=== PATIENT | male | born 1970 | race Caucasian/White ===

== ENCOUNTER 2019-04-22 21:57 | Emergency (ER) | payer OTHER ==
[2019-04-22 22:26] VITALS: BP 122/82; PULSE 65; TEMP 98.6; BMI 35.6
[2019-04-22] MEDS ORDERED: ACETAMINOPHEN 325 MG TABLET (FP) PO ONE (23:11)
[2019-04-22] MEDS ORDERED: ACETAMINOPHEN 325 MG TABLET (FP) ONE (23:15)
--- NOTE | 2019-04-23 01:11 | PDOC ---
History of Present Illness - General Chief Complaint: Pain, Acute Stated Complaint: PAIN Time Seen by Provider: 04/22/19 22:52 History Source: Patient Exam Limitations: No Limitations Past History - Travel Traveled outside of the country in the last 30 days: No Close contact w/someone who was outside of country & ill: No - Past Medical History Allergies/Adverse Reactions: Allergies Allergy/AdvReac Type Severity Reaction Status Date / Time No Known Allergies Allergy Verified 04/23/19 00:43 Home Medications: Ambulatory Orders Naproxen [Naprosyn -] 500 mg PO BID #14 tablet 12/16/14 Naproxen [Naprosyn -] 500 mg PO BID #14 tablet 04/23/19 Asthma: Yes GI Disorders: Yes (GERD) Seizures: Yes - Immunization History Immunization Up to Date: Yes - Suicide/Smoking/Psychosocial Hx Smoking History: Never smoked Hx Alcohol Use: No Drug/Substance Use Hx: No Substance Use Type: None Review of Systems - Review of Systems Able to Perform ROS?: Yes Is the patient limited Nepali proficient: No *Physical Exam - Vital Signs Last Vital Signs Temp Pulse Resp BP Pulse Ox 98.6 F 65 19 122/82 100 04/22/19 22:24 04/22/19 22:24 04/22/19 22:24 04/22/19 22:24 04/22/19 22:24 ED Treatment Course - RADIOLOGY Radiology Studies Ordered: Category Date Time Status HIP & PELVIS-LEFT [RAD] Stat Radiology 04/22/19 23:12 Taken KNEE 3 POS-LEFT [RAD] Stat Radiology 04/22/19 23:11 Taken DUPLEX VASCUL US-1 LEG [US] Stat Ultrasound 04/22/19 23:12 Taken - Medications Given in the ED: ED Medications Discontinued Medications Generic Name Dose Route Start Last Admin Trade Name Freq PRN Reason Stop Dose Admin Acetaminophen 650 mg 04/22/19 23:11 04/22/19 23:23 Tylenol - PO 04/22/19 23:12 650 mg ONCE ONE Administration Medical Decision Making - Medical Decision Making 04/23/19 01:05 The patient is a 48 y/o M with PMH of hydrocephalus who presents to the ER for L leg pain for one and half months. Pt states he fell at that time and twisted his leg. He states he landed on his L knee. He has seen his PCP for the pain and was told it was a muscle strain and told to massage the area. Denies fevers , chill, numbness, tingling and weakness to the affected extremity. A/P: L leg pain Pt with L leg pain, for 1 1/2 months s/p falling in a twisting motion X-ray negative for fx (-) LLE US for DVT Most likely knee sprain vs quad strain/partial tear Refer to orthopedics Naproxen for pain control DC home *DC/Admit/Observation/Transfer Diagnosis at time of Disposition: Knee pain Qualifiers: Chronicity: acute Laterality: left Qualified Code(s): M25.562 - Pain in left knee Leg pain Qualifiers: Laterality: left Qualified Code(s): M79.605 - Pain in left leg - Discharge Dispostion Disposition: HOME Condition at time of disposition: Stable Decision to Admit order: No - Referrals Referrals: Manny Munoz MD [Staff Physician] - - Patient Instructions Printed Discharge Instructions: DI for Knee Sprain Additional Instructions: You were evaluated for your leg pain today Your X-rays were normal (no broken bones) Your Ultrasound was negative for blood clots You most likely have a muscle strain Take the naproxen 500mg twice a day for one week Follow up with orthopedics this week. A referral has been given to you. Return to the ER for any new or worsening sympto,s - Post Discharge Activity
== END 2019-04-23 01:30 | disposition home or self-care (01) ==
LOC: JER 21:57
DX: M25.561 Pain in right knee (principal)
CPT/HCPCS: 73523-TC-FY; 73562-TC-LT-FY; 93971-TC; 99282-25

== ENCOUNTER 2022-10-25 16:16 | Emergency (ER) | payer OTHER ==
[2022-10-25 16:40] VITALS: BP 112/60; PULSE 86; RESP 18; TEMP 98.3; BMI 39.1
== END 2022-10-25 17:12 | disposition left against medical advice (07) ==
LOC: JERFT 16:16
DX: M79.652 Pain in left thigh (principal); M62.838 Other muscle spasm
CPT/HCPCS: 99281-25